=== PATIENT | female | born 1990 | race Caucasian/White ===

== ENCOUNTER 2018-02-23 07:00 | Inpatient (IN) | payer OTHER ==
[~2018-02-23] VITALS: Ht 170.2 cm; Wt 78.5 kg
[2018-03-26] MEDS ORDERED: PRENATAL TABLE1 EAC2 PO (08:04)
== END 2018-03-28 11:42 | disposition home or self-care (01) | DRG 775 ==
LOC: OB/GYN 03-26 07:38 → LDR 03-26 07:38 → OB/GYN 03-26 14:45
PROC: 10E0XZZ Delivery of Products of Conception, External Approach (ICD-10-PCS; principal; 2018-03-26)
PROC: 4A033R1 Measurement of Arterial Saturation, Peripheral, Percutaneous Approach (ICD-10-PCS; 2018-03-26)
PROC: 4A1HXCZ Monitoring of Products of Conception, Cardiac Rate, External Approach (ICD-10-PCS; 2018-03-26)
DX: O80 Encounter for full-term uncomplicated delivery (principal); Z3A.39 39 weeks gestation of pregnancy; Z37.0 Single live birth

== ENCOUNTER 2022-07-18 15:52 | Outpatient (CLI) | payer OTHER ==
[~2022-07-18 15:52] MED LIST: PRENATAL TABLE1 EAC2 PO
== END 2022-07-18 16:56 | disposition home or self-care (01) ==
LOC: PRENATAL 15:52
PROVIDERS: ATTEND Obstetrics & Gynecology Maternal & Fetal Medicine
DX: Z76.1 Encounter for health supervision and care of foundling (principal)

== ENCOUNTER 2022-08-15 15:56 | Outpatient (CLI) | payer OTHER | END 2022-08-15 17:13 | disposition home or self-care (01) | LOC: PRENATAL 15:56 | PROVIDERS: ATTEND Obstetrics & Gynecology Maternal & Fetal Medicine | DX: O35.9XX0 Maternal care for (suspected) fetal abnormality and damage, unspecified, not applicable or unspecified (principal); O35.3XX0 Maternal care for (suspected) damage to fetus from viral disease in mother, not applicable or unspecified; Z14.8 Genetic carrier of other disease; Z3A.20 20 weeks gestation of pregnancy ==

== ENCOUNTER 2022-12-26 15:00 | Inpatient (IN) | payer OTHER ==
[~2022-12-26] VITALS: Ht 170.2 cm; Wt 79.4 kg
== END 2023-01-05 13:01 | disposition home or self-care (01) | DRG 807 ==
LOC: OB/GYN 01-02 15:00 → LDR 01-03 00:14 → OB/GYN 01-03 00:14
PROVIDERS: ADMIT Obstetrics & Gynecology; ATTEND Obstetrics & Gynecology
PROC: 10E0XZZ Delivery of Products of Conception, External Approach (ICD-10-PCS; principal; 2023-01-03)
PROC: 0KQM0ZZ Repair Perineum Muscle, Open Approach (ICD-10-PCS; 2023-01-03)
PROC: 4A1HXCZ Monitoring of Products of Conception, Cardiac Rate, External Approach (ICD-10-PCS; 2023-01-03)
DX: O70.1 Second degree perineal laceration during delivery (principal); Z37.0 Single live birth; Z3A.40 40 weeks gestation of pregnancy; Z20.822 Contact with and (suspected) exposure to COVID-19

== ENCOUNTER → 2025-02-11 14:16 | Outpatient (CLI) | payer OTHER | END | disposition home or self-care (01) | LOC: PRENATAL 14:16 | PROVIDERS: ATTEND Obstetrics & Gynecology Maternal & Fetal Medicine | DX: O36.80X0 Pregnancy with inconclusive fetal viability, not applicable or unspecified (principal); Z36.82 Encounter for antenatal screening for nuchal translucency; O36.1999 Maternal care for other isoimmunization, unspecified trimester, other fetus; Z3A.12 12 weeks gestation of pregnancy ==

== ENCOUNTER 2025-04-09 06:40 | Outpatient (CLI) | payer OTHER | END 2025-04-09 06:43 | disposition home or self-care (01) | LOC: PRENATAL 06:40 | PROVIDERS: ATTEND Obstetrics & Gynecology Maternal & Fetal Medicine | DX: O44.00 Complete placenta previa NOS or without hemorrhage, unspecified trimester (principal); O36.1999 Maternal care for other isoimmunization, unspecified trimester, other fetus; Z3A.20 20 weeks gestation of pregnancy ==

== ENCOUNTER 2025-07-17 10:20 | Outpatient (CLI) | payer OTHER | END 2025-07-17 10:21 | disposition home or self-care (01) | LOC: PRENATAL 10:20 | PROVIDERS: ATTEND Obstetrics & Gynecology Maternal & Fetal Medicine | DX: O26.843 Uterine size-date discrepancy, third trimester (principal); O36.8130 Decreased fetal movements, third trimester, not applicable or unspecified; O44.03 Complete placenta previa NOS or without hemorrhage, third trimester; O36.1930 Maternal care for other isoimmunization, third trimester, not applicable or unspecified; Z3A.34 34 weeks gestation of pregnancy ==